=== PATIENT | female | born 1960 | race Caucasian/White ===

== ENCOUNTER → 2016-11-30 | Outpatient (CLI) | payer OTHER ==
[~2016-11-30] MED LIST: ACET-2930 PO; ASPI-1116 PO; HYDR-4010 PO; HYDR25TA PO; LANS30CA58 PO; LEVO150T11 PO; LIRA0.6P SQ; LOVA20TA3 PO; SERT100T PO; [UNRECOGNIZED DRUG - CODE] PO
== END ==
LOC: WC.BC 13:04
DX: Z12.31 Encounter for screening mammogram for malignant neoplasm of breast (principal); N64.59 Other signs and symptoms in breast
CPT/HCPCS: 77063; G0202